=== PATIENT | female | born 1950 | race Caucasian/White ===

== ENCOUNTER 2021-04-05 11:23 | Emergency (ER) | payer MEDICARE, SELFPAY ==
[2021-04-05] VITALS (22 sets, daily range): BP systolic 131–156; BP diastolic 64–110; PULSE 46–75; RESP 12–18; TEMP 36.3; O2SAT 95–100
--- NOTE | ~2021-04-05 | XR_ITS ---
EXAMINATION: XR humerus LT INDICATION: Left arm pain, initial encounter TECHNIQUE: Two views of the left humerus are obtained COMPARISON: None available FINDINGS: There is a comminuted spiral fracture of the proximal/mid humerus. The largest distal fract ure fragment is anteriorly displaced by approximately 10 mm. Alignment at the shoulder and elbow is n ormal. The soft tissues appear unremarkable. IMPRESSION: 1. Comminuted spiral fracture of the proximal/mid humerus. Reviewed, dictated and finalized at location A.
--- NOTE | ~2021-04-05 | CT_ITS ---
EXAMINATION: CT brain wo con INDICATION: Dizziness and fall COMPARISON: None TECHNIQUE: Standard unenhanced head CT. The dose-length product (DLP) was 605.33 mGy-cm. The mA was a djusted according to patient size. Iterative reconstruction technique was employed. FINDINGS: There is no acute intraparenchymal hemorrhage. No evidence of mass lesion. No evidence of a cute infarction. There is mild periventricular and subcortical hypodensity probably related to small vessel ischemic disease. There is mild prominence of the sulci and ventricles related to cerebral atr ophy. Intracranial calcified cerebral atherosclerosis is noted. There are no extra-axial collections. There is no mass effect or midline shift. The orbits and soft tissues are unremarkable. There is mil d mucosal thickening of the paranasal sinuses. IMPRESSION: 1. No acute intracranial abnormality. 2. Age related findings. Reviewed, dictated and finalized at location A.
--- NOTE | 2021-04-05 11:34 | ECG_ITS ---
Measurements Intervals [place] Rate: 48 P: 20 MI: 158 QRS: -6 QRSD: 90 T: 2 QT: 436 QTc: 390 Interpretive Statements SINUS BRADYCARDIA EARLY PRECORDIAL R/S TRANSITION LEFT VENTRICULAR HYPERTROPHY BASELINE ARTIFACT- II, III, AVR, AVF, V1, V3-V6 BORDERLINE ECG Electronically Signed On 04-05-2021 14:19:34 CDT by Kwasi Constantino D.O.
[2021-04-05 12:01] LABS: Basophils Percent Auto 0.5 % (0.2-1.2); Eosinophils Absolute Auto 0.2 K/mm3 (0-0.3); Hematocrit 40.2 % (37.0-47.0); Hemoglobin 12.9 g/dL (12.0-15.0); Immature Granulocyte Absolute 0.01 K/mm3 (0.00-0.031); Immature Granulocyte Percent A 0.2 % (0-0.5); Lymphocytes Absolute Auto 1.81 K/mm3 (0.9-3.2); Lymphocytes Percent Auto 30.3 % (18.3-44.2); Mean Corpuscular HGB Conc 32.1 g/dl (32-36); Mean Corpuscular Hemoglobin 27.4 pg (26-34); Mean Corpuscular Volume 85.5 fl (80-100); Mean Platelet Volume 9.3 fl (7.4-10.4); Monocytes Absolute Auto 0.3 K/mm3 (0.1-0.6); Neutrophils Absolute Auto 3.6 K/mm3 (1.3-6.7); Platelet Count Result 215 k/mm3 (150-375); Red Cell Distribution Width 13.3 % (11.5-14.5)
[2021-04-05 12:09] LABS: Prothrombin Time 13.3 Seconds (11.1-14.7)
[2021-04-05 12:11] LABS: Anion Gap 10 mmol/L (8-16); Blood Urea Nitrogen 14 mg/dL (7-17); Calcium 9.3 mg/dL (8.4-10.2); Carbon Dioxide 27 mmol/L (22-30); Chloride 103 mmol/L (98-107); Estimated Glomerular Filt Rate > 60; Glucose 117 mg/dL (65-105); Potassium 3.7 mmol/L (3.4-5.0); Sodium 140 mmol/L (137-145)
[2021-04-05 12:23] LABS: Troponin I < 0.012 ng/mL (0.000-0.034)
[2021-04-05] MEDS: MORPHINE SULFATE (*CRX) 4 MG/ML INJ IV PUSH ×2 (12:37→12:56)
[2021-04-05] MEDS: ONDANSETRON INJ 4 MG/2 ML VIAL IV PUSH (12:37)
[2021-04-05] MEDS: KETAMINE HCL (*CRX) 500 MG/10 ML VIAL 25 MG IV PUSH (13:58)
--- NOTE | 2021-04-05 14:10 | PC.NURSE ---
1340 patient in extreme pain during spliting after 8mg of morphine. ERP aware. ERP ordered 25mg of ketamine via verbal order readback. Order placed in 1399 Pt. increased lethargy upon administration of ketamine. Pt. O2 saturations in the high 80s. Pt. placed on 4L via nasal cannula of oxygen. O2 saturations up to 96%. Pt. still arousable by name and responds to pain 1420 oxygen discontinued. Pt. is more awake, Pt. maintaining oxygen saturations about 95% at this time.
--- NOTE | 2021-04-05 14:30 | ED.FALL ---
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 Patient states that she was trying to get down the stairs lost her balance and fell on the left arm. She denies loss of consciousness. Denies any neck pain or chest pain. MD complaint: fall Onset (ago): minute(s) (30) Fall from: standing Fall witnessed: yes, by family Place fall occurred: home Loss of consciousness: none Symptoms prior to fall: none Context: tripped/slipped Location of injury: other (Left upper arm) Location of injury - extremities: Left: shoulder, arm and elbow Severity: severe Quality: aching Associated symptoms (after fall): denies Related Data Allergies Allergy/AdvReac Type Severity Reaction Status Date / Time No Known Allergies Allergy Unverified 05/18/14 18:23 Review of Systems Review of Systems: All systems reviewed & are unremarkable except as noted in HPI and below Constitutional: Constitutional: Reports no additional constitutional complaints Eyes: Eyes: Reports no additional eye complaints ENT: Reports system reviewed and no additional complaints, except as documented Cardiovascular: Cardiovascular: Reports no additional cardiovascular complaints Respiratory: Respiratory: Reports no additional respiratory complaints Gastrointestinal: Gastrointestinal: Reports no additional gastrointestinal complaints Genitourinary: Genitourinary: Reports no additional female genitourinary complaints Musculoskeletal: Musculoskeletal: Reports as per HPI Integumentary/Breasts: Skin/Breast: Reports system reviewed and no additional complaints, except as docu Neurologic: Reports system reviewed and no additional complaints, except as documented Exam Narrative: Exam Narrative: GENERAL: Well-appearing, well-nourished, and in no acute distress. HEAD: Normocephalic, atraumatic. EYES: PERRLA and EOMI. ENT: Nares clear, no rhinorrhea or epistaxis. 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 NECK: Supple. CHEST: Clear to auscultation. No respiratory distress. HEART: Regular rate and rhythm. No murmur heard. Normal peripheral pulses. ABDOMEN: Soft, nontender, nondistended, normal active bowel sounds. EXTREMITIES: Tenderness in the left arm no obvious bruising noted. Shoulder appears to be in place painful range of motion rest of the joints are normal. SKIN: Warm, dry, no rash. NEURO: No focal deficits. Alert and oriented x3. PSYCH: Normal mood and affect. Course Course Emergency Course: Inform patient and family about her lab work, x-ray findings. I discussed with recommended long-arm splint and will follow up in the office on Wednesday. Patient does feel comfortable going home. Meanwhile for applying splint patient was unable to tolerate with the pain I have given IV for ketamine 50 mg she tolerated well ,splint was applied neurovascularly intact after the splint was applied. Vital Signs Vital signs: Vital Signs Temperature 36.3 C L 04/05/21 11:18 Pulse Rate 47 L 04/05/21 11:18 Respiratory Rate 14 04/05/21 11:18 Blood Pressure 131/110 H 04/05/21 11:18 Pulse Oximetry 99 04/05/21 11:18 Temperature 36.3 C L 04/05/21 11:18 Pulse Rate 47 L 04/05/21 11:18 Respiratory Rate 14 04/05/21 11:18 Blood Pressure 131/110 H 04/05/21 11:18 Pulse Oximetry 99 04/05/21 11:18 MDM - Fall Lab Data Result diagrams: 04/05/21 11:48 04/05/21 11:48 Labs: Lab Results 04/05/21 04/05/21 04/05/21 Range/Units 11:48 11:48 11:48 WBC 6.0 (4.5-10.0) K/mm3 RBC 4.70 (4.2-5.4) M/mm3 Hgb 12.9 (12.0-15.0) g/dL Hct 40.2 (37.0-47.0) % MCV 85.5 (80-100) fl MCH 27.4 (26-34) pg MCHC 32.1 (32-36) g/dl RDW
--- NOTE | 2021-04-05 15:18 | PC.NURSE ---
Pt. stated feeling dizzy still after medications. ERP notified. ERP stated to let patient rest until symptoms improve then Pt. will be able to be discharged.
[2021-04-05] MEDS: ONDANSETRON INJ 4 MG/2 ML VIAL (16:18)
--- NOTE | 2021-04-05 19:39 | PC.NURSE ---
pt's pharmacy called to confirm the quantity of zofran prescribed. Per COY Vargas ten (10) may be dispensed.
--- NOTE | 2021-04-11 08:02 | PC.NURSE ---
LATE ENTRY This note is being entered to document information to the patient's record. The following information was omitted on [04/11/21], by [Ashish Chan] Per. Dr. Finnegan via verbal order readback, place upper and lower arm sugar tong splint on patient's left arm. .
== END 2021-04-05 17:04 | disposition home or self-care (01) ==
PROVIDERS: Emergency Provider Family Medicine
DX: S42.342A Displaced spiral fracture of shaft of humerus, left arm, initial encounter for closed fracture (principal); I10 Essential (primary) hypertension; Z86.73 Personal history of transient ischemic attack (TIA), and cerebral infarction without residual deficits; R00.1 Bradycardia, unspecified; I51.7 Cardiomegaly; W10.9XXA Fall (on) (from) unspecified stairs and steps, initial encounter
CPT/HCPCS: 29125; 36415; 70450; 73060; 80048; 84484; 85025; 85610; 93005; 96374; 96375; 96376; 99284; A4565; J2270; J2405